=== PATIENT | male | born 1965 | race Caucasian/White ===

== ENCOUNTER 2023-05-23 08:21 | Day surgery (SDC) | payer OTHER, SELFPAY ==
[2023-05-21 14:28] VITALS: BMI 34.7
--- NOTE | 2023-05-23 08:37 | W.PM.OPSFHP ---
Same Day Surgery H&P Indication for Procedure/HPI DATE OF PROCEDURE: May 23, 2023 CHIEF COMPLAINT/INDICATIONFOR SURGICAL PROCEDURE: need for screening colonoscopy PREOP DIAGNOSIS: screening for colorectal cancer and dysphagia PLANNED PROCEDURE: Operation Date: 05/23/23 09:40 Proposed Procedures p 64185 EGD 80599 Colonoscopy z86.010,R13.10(Not Applicable) - Donnell Yañez MD s Colonoscopy(Not Applicable) - Donnell Yañez MD Medications/Allergies* Home Medications Medication Instructions Recorded Confirmed Type ascorbic acid (vitamin C) 250 mg 250 mg PO DAILY 03/22/23 05/22/23 History tablet aspirin 81 mg tablet,delayed 81 mg PO DAILY 03/22/23 05/22/23 History release calcium carbonate 600 mg-vitamin 1 tab PO DAILY 03/22/23 05/22/23 History D3 20 mcg (800 unit) chewable tablet (Caltrate 600 plus D) cholecalciferol (vitamin D3) 25 25 mcg PO BID 03/22/23 05/22/23 History mcg (1,000 unit) capsule elderberry gummies 1 caplet PO DAILY 03/22/23 05/22/23 History garlic 1,000 mg capsule 1,000 mg PO BID 03/22/23 05/22/23 History krill 1,000 mg-omega-3 170 mg-dha 1 cap PO DAILY 03/22/23 05/22/23 History 50 mg-epa 80 vj-pyxtgq-xrglo capsule (krill oil) oqahkrnzfemu-cqa-jndoc acid-vit 1 tab PO DAILY 03/22/23 05/22/23 History K-lycop 400 mcg-20 mcg-370 mcg tablet (One-A-Day Men's 50 Plus (with vitamin K)) vitamin B complex 1 cap PO DAILY 03/22/23 05/22/23 History amlodipine 10 mg tablet 10 mg PO QPM blood pressure 05/22/23 05/22/23 History Allergies/Adverse Reactions Allergy/AdvReac Type Severity Reaction Status Date / Time anesthetics Allergy BP dropped Uncoded 05/23/23 08:37 out and sick the next day Pertinent History/Comorbid Conditions* Medical History (Updated 04/02/23 @ 10:48 by Donnell Yañez MD) Allergies Crushed finger History of colon polyps Colonoscopy at age 51 with colon polyps removed 2016, HTN (hypertension) with goal to be determined Numbness of upper extremity Obesity (BMI 30.0-34.9) Surgical History (Updated 04/02/23 @ 10:45 by Donnell Yañez MD) Hx of colonoscopy with polypectomy Age 51 Family History (Updated 03/22/23 @ 14:42 by July Gonzalez LPN) Father Chronic kidney disease (CKD) Father Dialysis patient Father Social History Smoking and tobacco status: former smoker Quit status (tobacco): has quit using tobacco Second hand smoke exposure: No Smoking risk assessment/counseling performed?: No Alcohol intake: former Desire information about alcohol rehabilitation?: No Counseling given: No Substance/Drug Use: never Desire information about substance/drug rehabilitation?: No Counseling given: No Pertinent Exam Findings alert, oriented x 3, clear to auscultation bilaterally, regular rate & rhythm and operative site marked Recommendations Surgery/Procedure today Coding Level of Care Code Acute Code for Chg Fwd Diagnoses
[2023-05-23] MEDS: sodium chloride 0.9% 1,000 ML 30 ML IV (08:43)
[2023-05-23 08:52] VITALS: BP 149/84; PULSE 67; RESP 18; TEMP 36.3; O2SAT 94
--- NOTE | 2023-05-23 08:55 | ANES.PREANE2 ---
Pre-Anesthetic Assessment Height/Weight: Height 1.75 m Weight 106.594 kg Temp Pulse Resp BP Pulse Ox O2 Del Method 97.3 F L 67 18 149/84 94 Room Air 05/23/23 08:52 05/23/23 08:52 05/23/23 08:52 05/23/23 08:52 05/23/23 08:52 05/23/23 08:52 Preop Diagnosis: screening for colorectal cancer and dysphagia Operation Date: 05/23/23 09:40 Proposed Procedures p 97658 EGD 63920 Colonoscopy z86.010,R13.10(Not Applicable) - Donnell Yañez MD s Colonoscopy(Not Applicable) - Donnell Yañez MD Familial anesthetic complications: local anesthesia made my blood pressure drop Was Beta Mimi taken within 24 hours: N/A Was Clonidine taken within 24 hours: N/A Last intake: Intake Last Liquid Date 05/22/23 Last Liquid Time 22:00 Last Solid Date 05/21/23 Social No alcohol and No tobacco Exam alert, oriented x 3, clear to auscultation bilaterally and regular rate & rhythm Airway Submandibular: within normal limits Cervical ROM: within normal limits Mallampati: Class I Dentition: full Pulmonary Sleep Apnea bronchitis related to fall season (steroid inhalers) CV/HEM Hypertension None reported Hepatic None reported GI Gastroesophageal Reflux Disease (OTC helps) Metabolic None reported Musc/skel Lower Back Pain Neuropsych None reported Anesthetic Plan ASA status: 2 Anesthesia: MAC Risk of > 500 ml blood loss (7ml/kg in children): No Medications/Allergies Home Medications Medication Instructions Recorded Confirmed Last Taken Type ascorbic acid (vitamin C) 250 mg 250 mg PO DAILY 03/22/23 05/22/23 05/22/23 History tablet aspirin 81 mg tablet,delayed 81 mg PO DAILY 03/22/23 05/22/23 04/21/23 History release calcium carbonate 600 mg-vitamin 1 tab PO DAILY 03/22/23 05/22/23 05/22/23 History D3 20 mcg (800 unit) chewable tablet (Caltrate 600 plus D) cholecalciferol (vitamin D3) 25 25 mcg PO BID 03/22/23 05/22/23 05/22/23 History mcg (1,000 unit) capsule elderberry gummies 1 caplet PO DAILY 03/22/23 05/22/23 05/22/23 History garlic 1,000 mg capsule 1,000 mg PO BID 03/22/23 05/22/23 05/22/23 History krill 1,000 mg-omega-3 170 mg-dha 1 cap PO DAILY 03/22/23 05/22/23 05/22/23 History 50 mg-epa 80 pc-zduohb-lgbjy capsule (krill oil) lnblecxmpvej-haw-pqxmw acid-vit 1 tab PO DAILY 03/22/23 05/22/23 05/22/23 History K-lycop 400 mcg-20 mcg-370 mcg tablet (One-A-Day Men's 50 Plus (with vitamin K)) vitamin B complex 1 cap PO DAILY 03/22/23 05/22/23 05/22/23 History spironolactone 25 mg tablet 25 mg PO QAM blood pressure #90 03/23/23 05/22/23 05/22/23 Rx tabs valsartan 320 mg tablet 320 mg PO DAILY blood pressure #90 03/23/23 05/22/23 05/22/23 Rx tabs amlodipine 10 mg tablet 10 mg PO QPM blood pressure 05/22/23 05/22/23 05/22/23 History Allergies Allergy/AdvReac Type Severity Reaction Status Date / Time anesthetics Allergy BP dropped Uncoded 05/23/23 08:44 out and sick the next day Current Medications Generic Name Dose Route Start Last Admin Trade Name Freq PRN Reason Stop Dose Admin Sodium Chloride 1,000 mls @ 30 mls/hr 05/23/23 08:30 05/23/23 08:43 Sodium Chloride 0.9% IV 05/24/23 08:29 30 mls/hr .Q24H JENNIFER Administration PFSH Anesthesia Medical History (Updated 04/02/23 @ 10:48 by Donnell Yañez MD) Allergies Crushed finger History of colon polyps Colonoscopy at age 51 with colon polyps removed 2016, HTN (hypertension) with goal to be determined Numbness of upper extremity Obesity (BMI 30.0-34.9) Surgical History (Updated 04/02/23 @ 10:45 by Donnell Yañez MD) Hx of colonoscopy with polypectomy Age 51 Family History Father Chronic kidney disease (CKD) Dialysis patient Mother No problems noted. Social History Smoking and tobacco status: former smoker Quit status (tobacco): has quit using tobacco Second hand smoke exposure: No Smoking risk assessment/counseling performed?: No Alcohol intake: former Desire information about alcohol rehabilitation?: No Counseling given: No Substance/Drug Use: never Desire information about substance/drug rehabilitation?: No Counseling given: No Data Anesthesia Cardiac Studies: No Data to Display
[2023-05-23 10:08] VITALS: BP 113/68; PULSE 74; RESP 18; TEMP 36.2; O2SAT 96
[2023-05-23 10:17] VITALS: BP 110/73; PULSE 68; RESP 16; O2SAT 96
== END 2023-05-23 10:55 | disposition home or self-care (01) ==
PROVIDERS: Visit Provider Surgery
PROC: 0DJ08ZZ Inspection of Upper Intestinal Tract, Via Natural or Artificial Opening Endoscopic (ICD-10-PCS; CPT 43235; principal; 2023-05-23 09:40)
PROC: 0DJD8ZZ Inspection of Lower Intestinal Tract, Via Natural or Artificial Opening Endoscopic (ICD-10-PCS; CPT 45378; 2023-05-23 09:40)
DX: Z12.11 Encounter for screening for malignant neoplasm of colon (principal); Z86.010 Personal history of colon polyps; K21.00 Gastro-esophageal reflux disease with esophagitis, without bleeding; K22.70 Barrett's esophagus without dysplasia; K29.70 Gastritis, unspecified, without bleeding; Z79.82 Long term (current) use of aspirin; I10 Essential (primary) hypertension; E66.9 Obesity, unspecified; Z68.34 Body mass index [BMI] 34.0-34.9, adult; Z87.891 Personal history of nicotine dependence; G47.30 Sleep apnea, unspecified
CPT/HCPCS: 43239; 45378; 88305; 88342; J2704; J7030

== ENCOUNTER → 2023-06-25 11:09 | Outpatient (BNVA) | payer OTHER, SELFPAY | PROVIDERS: Visit Provider Family Medicine Adult Medicine | DX: I10 Essential (primary) hypertension (principal); E66.9 Obesity, unspecified; R13.10 Dysphagia, unspecified | CPT/HCPCS: 80053; 80061; 84443; 85025; G0103 ==

== ENCOUNTER 2024-01-09 08:13 | Day surgery (SDC) | payer OTHER, SELFPAY ==
[2024-01-09 08:31] VITALS: BP 157/87; PULSE 61; RESP 18; TEMP 36.5; O2SAT 97
[2024-01-09] MEDS: sodium chloride 0.9% 1,000 ML 30 ML IV (08:41)
--- NOTE | 2024-01-09 10:01 | W.PM.OPSUD ---
Surgery/Procedure H&P Update DATE OF PROCEDURE: January 09, 2024 DATE H&P PERFORMED: 12/25/23 H&P UPDATE INFORMATION: I have reviewed H&P completed within last 30 days, I have examined patient prior to procedure, No changes to prior documentation and H[place] [facility] date indicated PLANNED PROCEDURE: Operation Date: 01/09/24 09:20 Proposed Procedures p EGD 71407, K21.00(Not Applicable) - Donnell Yañez MD
--- NOTE | 2024-01-09 10:18 | P.ANESASSM_ITS ---
Pre-Anesthetic Assessment Height/Weight: Height 1.75 m Temp Pulse Resp BP Pulse Ox O2 Del Method 97.7 F 61 18 157/87 97 Room Air 01/09/24 08:31 01/09/24 08:31 01/09/24 08:31 01/09/24 08:31 01/09/24 08:31 01/09/24 08:31 Preop Diagnosis: GERD Operation Date: 01/09/24 09:20 Proposed Procedures p EGD 91533, K21.00(Not Applicable) - Donnell Yañez MD Familial anesthetic complications: none Was Beta Mimi taken within 24 hours: N/A Was Clonidine taken within 24 hours: N/A Last intake: Intake Last Liquid Date 01/08/24 Last Liquid Time 20:00 Last Solid Date 01/08/24 Last Solid Time 20:00 Social No alcohol and No tobacco Exam alert and oriented x 3 Airway Submandibular: within normal limits Cervical ROM: within normal limits Mallampati: Class I Dentition: full History/ROS No significant history except as noted Pulmonary Asthma CV/HEM Hypertension None reported Hepatic None reported GI Gastroesophageal Reflux Disease Metabolic Hyperlipidemia and Morbid Obesity [facility] [place] None reported Neuropsych None reported Anesthetic Plan ASA status: 3 Anesthesia: Anesthesia Evaluation, General and MAC Medications/Allergies Home Medications Medication Instructions Recorded Confirmed Last Taken Type ascorbic acid (vitamin C) 250 mg 250 mg PO DAILY 03/22/23 01/09/24 01/07/24 History tablet calcium carbonate 600 mg-vitamin 1 tab PO DAILY 03/22/23 01/09/24 01/08/24 History D3 20 mcg (800 unit) chewable tablet (Caltrate 600 plus D) cholecalciferol (vitamin D3) 25 25 mcg PO BID 03/22/23 01/09/24 01/08/24 History mcg (1,000 unit) capsule elderberry gummies 1 caplet PO DAILY 03/22/23 01/09/24 01/08/24 History garlic 1,000 mg capsule 1,000 mg PO BID 03/22/23 01/09/24 01/08/24 History krill 1,000 mg-omega-3 170 mg-dha 1 cap PO DAILY 03/22/23 01/09/24 01/08/24 History 50 mg-epa 80 ft-mvydkc-zriyd capsule (krill oil) zxcjwqkxrgpj-odj-wxgyj acid-vit 1 tab PO DAILY 03/22/23 01/09/24 01/08/24 History K-lycop 400 mcg-20 mcg-370 mcg tablet (One-A-Day Men's 50 Plus (with vitamin K)) vitamin B complex 1 cap PO DAILY 03/22/23 01/09/24 01/08/24 History albuterol sulfate 90 mcg/actuation 1 inh inhalation QID PRN shortness 09/24/23 01/09/24 01/08/24 Rx aerosol inhaler of breath or wheezing #8.5 grams amlodipine 10 mg tablet 10 mg PO QPM blood pressure #90 09/24/23 01/09/24 01/08/24 Rx tabs spironolactone 25 mg tablet 25 mg PO QAM blood pressure #90 09/24/23 01/09/24 Unknown Rx tabs valsartan 320 mg tablet 320 mg PO DAILY blood pressure #90 09/24/23 01/09/24 01/08/24 Rx tabs pantoprazole 40 mg tablet,delayed 40 mg PO ONCE acid reflux 30 days 12/25/23 01/09/24 01/09/24 Rx release #30 tabs Allergies Allergy/AdvReac Type Severity Reaction Status Date / Time lidocaine AdvReac Severe ADR/ALGY-Hy Verified 01/09/24 08:31 potension Current Medications Generic Name Dose Route Start Last Admin Trade Name Freq PRN Reason Stop Dose Admin Sodium Chloride 1,000 mls @ 30 mls/hr 01/09/24 08:30 01/09/24 08:41 Sodium Chloride 0.9% IV 30 mls/hr .Q24H JENNIFER Administration PFSH Anesthesia Medical History Asthma GERD with esophagitis History of colon polyps colon polyps removed 2016, 05/23/2023 colonoscopy neg polyp Dyslipidemia (high LDL; low HDL) BMI over 35 Numbness of upper extremity Crushed finger Allergies HTN (hypertension) with goal to be determined Surgical History (Updated 01/07/24 @ 08:45 by Phyllis Lee RN) Hx of hand surgery right hand/ring finger Family History Father Chronic kidney disease (CKD) Dialysis patient Mother No problems noted. Social History Smoking and tobacco/nicotine status: former use of tobacco/nicotine Quit status (tobacco/nicotine): has quit using Second hand smoke exposure: No Alcohol intake: former Substance/Drug Use: never Data Anesthesia Cardiac Studies: No Data to Display
[2024-01-09 10:28] VITALS: BP 138/75; PULSE 69; RESP 18; TEMP 36.2; O2SAT 94
--- NOTE | 2024-01-09 10:35 | ANE.PACU2 ---
Inpatient post-anesthesia follow up: Airway intact: Yes Vital signs: Temperature 97.2 F Pulse Rate 69 Respiratory Rate 18 Blood Pressure 138/75 Pulse Oximetry 94 Oxygen Delivery Me thod Room Air Oxygen Flow Rate Fraction of Inspir ed Oxygen Hydration adequate: Yes Nausea and vomiting: No Pain level: 1 Mental status: Baseline
[2024-01-09 10:38] VITALS: BP 103/72; PULSE 64; RESP 18; O2SAT 96
[2024-01-09 10:50] VITALS: BP 124/75; PULSE 60; RESP 18; O2SAT 96
== END 2024-01-09 11:06 | disposition home or self-care (01) ==
PROVIDERS: PCP Family Medicine Adult Medicine; Visit Provider Surgery
PROC: 0DJ08ZZ Inspection of Upper Intestinal Tract, Via Natural or Artificial Opening Endoscopic (ICD-10-PCS; CPT 43235; principal; 2024-01-09 09:20)
DX: K29.70 Gastritis, unspecified, without bleeding (principal); K22.70 Barrett's esophagus without dysplasia; K20.90 Esophagitis, unspecified without bleeding; K21.9 Gastro-esophageal reflux disease without esophagitis; J45.909 Unspecified asthma, uncomplicated; I10 Essential (primary) hypertension; E78.5 Hyperlipidemia, unspecified; E66.01 Morbid (severe) obesity due to excess calories; Z68.35 Body mass index [BMI] 35.0-35.9, adult; Z87.891 Personal history of nicotine dependence
CPT/HCPCS: 43239; 88305; J2704; J7030

== ENCOUNTER → 2024-03-24 09:12 | Outpatient (BNVA) | payer OTHER, SELFPAY | PROVIDERS: PCP Family Medicine Adult Medicine; Visit Provider Family Medicine Adult Medicine | DX: I10 Essential (primary) hypertension (principal); E78.5 Hyperlipidemia, unspecified | CPT/HCPCS: 80053; 80061; 85025 ==

== ENCOUNTER → 2024-05-28 14:13 | Outpatient (BNVA) | payer OTHER, SELFPAY | PROVIDERS: PCP Family Medicine Adult Medicine; Visit Provider Registered Nurse | DX: J32.9 Chronic sinusitis, unspecified (principal) | CPT/HCPCS: 87400; 87426 ==

== ENCOUNTER → 2025-02-18 08:53 | Outpatient (BNVA) | payer OTHER, SELFPAY | PROVIDERS: PCP Family Medicine; Visit Provider Family Medicine | DX: I10 Essential (primary) hypertension (principal); N40.0 Benign prostatic hyperplasia without lower urinary tract symptoms | CPT/HCPCS: 80053; 80061; 84153; 84439; 84443; 85025 ==